=== PATIENT | male | born 1970 | race Two or more races ===

== ENCOUNTER 2017-08-29 00:37 | Emergency (ER) | payer SELFPAY ==
[2017-08-29 03:00] VITALS: RESP 18; TEMP 98.6
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
[2017-08-29 04:12] LABS: BASO # 0.1 K/uL (0.0-0.2); BASO % 0.6 % (0.0-2.0); EOS # 0.1 K/uL (0.0-0.7); EOS % 1.4 % (0.0-4.0); HEMOGLOBIN 14.6 g/dL (12.0-18.0); LYMPH # 1.7 K/uL (1.0-4.3); LYMPH % 19.5 % (20.0-40.0); MEAN CELL VOLUME 102.6 fL (80.0-94.0); MEAN CORPUSCULAR HEMOGLOBIN 34.7 pg (27.0-31.0); MEAN CORPUSCULAR HGB CONC 33.9 g/dL (33.0-37.0); MEAN PLATELET VOLUME 8.1 fL (7.2-11.7); MONO # 0.4 K/uL (0.0-0.8); MONO % 4.8 % (0.0-10.0); NEUT # 6.6 K/uL (1.8-7.0); NEUT % 73.7 % (50.0-75.0); RBC 4.21 Mil/uL (4.40-5.90); RED CELL DISTRIBUTION WIDTH 14.2 % (11.5-14.5); WHITE BLOOD COUNT 8.9 K/uL (4.8-10.8)
[2017-08-29 04:22] LABS: ALB/GLOB RATIO 1.2 (1.0-2.1); ALBUMIN 4.5 g/dL (3.5-5.0); ALT/SGPT 58 U/L (21-72); AST/SGOT 37 U/L (17-59); BLOOD UREA NITROGEN 11 mg/dL (9-20); GFR AFRICAN-AMERICAN > 60; GFR NON-AFRICAN AMERICAN > 60
[2017-08-29 04:29] LABS: SQUAMOUS EPITHIAL < 1 /hpf (0-5); URINE BACTERIA RARE (<OCC); URINE BILIRUBIN NEGATIVE (NEGATIVE); URINE BLOOD NEGATIVE (NEGATIVE); URINE CLARITY Clear (Clear); URINE COLOR Straw (YELLOW); URINE GLUCOSE (UA) NORMAL (Normal); URINE HYALINE CAST 0-2 /lpf (0-2); URINE LEUKOCYTE ESTERASE NEG Leu/uL (Negative); URINE PROTEIN NEGATIVE (NEGATIVE); URINE UROBILINOGEN NORMAL mg/dL (0.2-1.0)
[2017-08-29 04:42] LABS: BARBITURATES, UR NEGATIVE (NEGATIVE); BENZODIAZEPINES, UR NEGATIVE (NEGATIVE); OPIATES, UR NEGATIVE (NEGATIVE); PHENCYCLIDINE, UR NEGATIVE (NEGATIVE)
[2017-08-29] MEDS ORDERED: Sodium Chloride 0.9% 1,000 ML IV ONE (07:36)
[2017-08-29] MEDS ORDERED: Sodium Chloride 0.9% 1,000 ML ONE (08:08)
[2017-08-29 09:08] VITALS: BP 114/73; PULSE 70; O2SAT 100
== END 2017-08-29 09:40 | disposition home or self-care (01) ==
LOC: EDBD 00:37 → C.ER 00:37 → MERGE 00:37 → C.ER 09:40
DX: F10.129 Alcohol abuse with intoxication, unspecified (principal); F19.10 Other psychoactive substance abuse, uncomplicated
CPT/HCPCS: 36415; 80053; 81001; 85025; 96360; 96372; 99285; G0480; J1630; J2060; J7030

== ENCOUNTER 2017-09-11 19:19 | Emergency (ER) | payer MEDICAID ==
[2017-09-11 19:19] VITALS: BMI 86.0
[2017-09-11 19:30] VITALS: BP 123/71; RESP 20; TEMP 98.1
[2017-09-11] MEDS ORDERED: Tetanus/Diphtheria Toxoids 0.5 ml Syringe IM ONE ×2 (19:40→19:45)
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
[2017-09-11 20:44] VITALS: PULSE 86
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
[2017-09-13 01:13] VITALS: O2SAT 94
== END 2017-09-11 20:57 | disposition home or self-care (01) ==
LOC: C.ER 19:19
DX: H10.213 Acute toxic conjunctivitis, bilateral (principal); S00.81XA Abrasion of other part of head, initial encounter; M84.48XA Pathological fracture, other site, initial encounter for fracture; X58.XXXA Exposure to other specified factors, initial encounter; F10.129 Alcohol abuse with intoxication, unspecified; Y90.9 Presence of alcohol in blood, level not specified